=== PATIENT | male | born 2000 | race Caucasian/White ===

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

== ENCOUNTER 2023-11-17 10:05 | Emergency (ER) | payer OTHER, SELFPAY ==
[2023-11-17 10:18] VITALS: BP 124/59; PULSE 78; RESP 16; TEMP 37.1; O2SAT 99
--- NOTE | 2023-11-17 10:42 | ED.URI ---
HPI - URI/Sore Throat General Chief Complaint: Upper Respiratory Infection Stated Complaint: COVID+ Source: patient and RN notes reviewed Mode of arrival: ambulatory Limitations: no limitations History of Present Illness HPI Narrative: 23 y/o male who tested positive for COVID 3 days ago, presented requesting an additional Covid test for his employer. States he started with symptoms nasal congestion, cough, headache 11/12. Taking DayQuil. Denies sob, wheezing, n/v/d/f/c. MD elicited complaint: cough Related Data Home Medications Medication Instructions Recorded Confirmed azithromycin 250 mg tablet mg 11/17/23 Allergies Allergy/AdvReac Type Severity Reaction Status Date / Time No Known Allergies Allergy Verified 11/17/23 10:11 Review of Systems Review of Systems: CONSTITUTIONAL: denies malaise, chills, sweats, fever EYES: Denies visual changes, redness, or discharge ENT: Reports rhinorrhea, congestion, denies sinus pain, otalgia, sore throat CARDIOVASCULAR: Denies chest pain, palpitations, edema RESPIRATORY: Reports cough, post nasal drainage. Denies dyspnea GASTROINTESTINAL: Denies abdominal pain, nausea, vomiting, diarrhea SKIN: Denies rash or itching MUSCULOSKELETAL: Denies myalgia NEUROLOGIC: Endorses headache PMFSH Past Medical History Medical History ADHD (attention deficit hyperactivity disorder) No significant past medical history Surgical History Surgical History No significant past surgical history Family History Family History Father Bone disease Mother Asthma Social History Social History Smoking status: Light tobacco smoker Tobacco type: cigarettes Second hand tobacco smoke exposure: Yes Alcohol intake: never Substance use: former Other substance usage details: Has not used drugs in several months Living arrangements: with family Occupation/Education: student Gender identity (if verbalized by the patient): Male Exam Narrative: GENERAL: mildly Ill-appearing, nontoxic EYES: PERRLA, conjunctivae clear ENT: Mucous membranes moist. TMs pearly philip with dull light reflex bilaterally; no tragal tenderness. NECK: Supple. No lymphadenopathy CHEST: Clear to auscultation, breath sounds equal. No wheezing, rhonchi, rales, or stridor. No respiratory distress, speaks in full sentences. HEART: Regular rate and rhythm. No murmur heard. SKIN: Warm, dry, no rash. NEURO: Alert and oriented x3. PSYCH: Normal mood and affect Course Course Emergency Course: Patient is aware of diagnosis, understands and agrees to treatment plan. Anticipatory guidance given. Patient agrees to follow-up as directed and is aware of reasons to seek care at the emergency department. Portions of this record may have been created with voice recognition software Level of Care: Express Care Visit Vital Signs Vital signs: Vital Signs Temperature 98.8 F 11/17/23 10:18 Pulse Rate 78 11/17/23 10:18 Respiratory Rate 16 11/17/23 10:18 Blood Pressure 124/59 L 11/17/23 10:18 Pulse Oximetry 99 11/17/23 10:18 Oxygen Delivery Room Air 11/17/23 10:18 Temperature 98.8 F 11/17/23 10:18 Pulse Rate 78 11/17/23 10:18 Respiratory Rate 16 11/17/23 10:18 Blood Pressure 124/59 L 11/17/23 10:18 Pulse Oximetry 99 11/17/23 10:18 Oxygen Delivery Room Air 11/17/23 10:18 reviewed MDM - URI/Sore Throat MDM Narrative Medical decision making narrative: Discussed physical exam findings and negative covid test result. Advised supportive measures and signs/symptoms to go to the ER. Pt is appropriate for outpt treatment and f/u. Differential Diagnosis Differential diagnosis: Likely upper respiratory infection, sinusitis and viral infection Discharge P
== END 2023-11-17 11:24 | disposition home or self-care (01) ==
PROVIDERS: Emergency Provider Nurse Practitioner Family
DX: B34.9 Viral infection, unspecified (principal); F17.210 Nicotine dependence, cigarettes, uncomplicated; Z20.822 Contact with and (suspected) exposure to COVID-19
CPT/HCPCS: 87426; 99213; C9803; G0463